=== PATIENT | female | born 1965 | race Caucasian/White ===

== ENCOUNTER 2018-03-27 07:43 | Day surgery (SDC) | END 2018-03-27 13:10 | disposition home or self-care (01) ==

== ENCOUNTER 2019-03-18 08:55 | Day surgery (SDC) | payer BC ==
[~2019-03-18] VITALS: Ht 167.6 cm; Wt 74.0 kg
[2019-03-18] VITALS (13 sets, daily range): BP systolic 103–119; BP diastolic 52–67; PULSE 80–94; RESP 14–21; Ht 167.6 cm; Wt 74.0 kg
[~2019-03-18 08:55] MED LIST: CEFAZOLIN 2 GM/50 ML (PMX) 50 ML IVPB SCH
[2019-03-18] MEDS ORDERED: LACTATED RINGER'S 1,000 ML IV SCH (10:00)
--- NOTE | 2019-03-18 10:52 | HPN ---
Date/Time of Note Date/Time of Note DATE: 03/18/19 TIME: 10:52 Interval H&P Admission Note Pt. seen H&P reviewed: No system changes MUKUL TURCIOS DPM Mar 18, 2019 10:52
--- NOTE | 2019-03-18 10:56 | PREAC ---
Date/Time of Note Date/Time of Note DATE: 03/18/19 TIME: 10:56 Anesthesia Eval and Record Evaluation Time Pre-Procedure Interview DATE: 03/18/19 TIME: 10:56 Age 53 Sex female NPO: 8 hrs Preoperative diagnosis Right foot bunion Planned procedure Bunionectomy Past Medical History Past Medical History: None Surgery & Anesthesia Issues No known issue Meds Anticoagulation: No Beta Larissa within 24 hr: No Reason Beta Larissa not given: Pt. not on B-Larissa No Active Prescriptions or Reported Meds Current Medications Cefazolin Sodium/ Dextrose 50 ml @ 100 mls/hr PREOP IVPB ; Start 03/18/19 at 06:30; Stop 03/18/19 at 20:00 Lactated Ringer's 1,000 ml @ 25 mls/hr Q24H IV Last administered on 03/18/19at 10:10; Admin Dose 25 MLS/HR; Start 03/18/19 at 10:00 Meds reviewed: Yes Allergies Coded Allergies: No Known Allergy (Unverified , 03/18/19) Allergies Reviewed: Yes Labs/Studies Labs Reviewed: Reviewed by anesthesiologist test: Negative Pre-procedure Exam Last vitals Vital Signs Date Temp Pulse Resp B/P (MAP) Pulse Ox O2 O2 Flow FiO2 Time Delivery Rate 03/18/19 97.5 88 16 119/67 100 Room Air 10:25 (84) Airway: Adequate mouth opening Mallampati: Mallampati I Teeth: Normal Lung: Normal Heart: Normal ASA Physical Status ASA physical status: 1 Emergency: None Planned Anesthetic General/MAC: LMA Planned Pain Management Parenteral pain med Pre-operative Attestations Prior to commencing anesthesia and surgery, the patient was re-evaluated, there was verification of: *The patient's identity *The results of appropriate recent lab work and preoperative vital signs *The above evaluation not changing prior to induction *Anesthetic plan, risk benefits, alternative and complications discussed with patient/family; questions answered; patient/family understands, accepts and wishes to proceed. XENIA CALDERON MD Mar 18, 2019 10:56
[2019-03-18] MEDS ORDERED: PROPOFOL 20 ML ONE (11:09)
[2019-03-18] MEDS ORDERED: CEFAZOLIN 1 GM INJ ONE (11:09)
[2019-03-18] MEDS ORDERED: LIDOCAINE 2% (SDV) 5 ML INJ ONE (11:09)
[2019-03-18] MEDS ORDERED: MIDAZOLAM 1 MG/ML 2 ML INJ ONE (11:10)
[2019-03-18] MEDS ORDERED: METOCLOPRAMIDE 10 MG INJ ONE (11:10)
[2019-03-18] MEDS ORDERED: ONDANSETRON 4 MG INJ ONE (11:10)
[2019-03-18] MEDS ORDERED: BUPIVACAINE 0.5% (SDV) 30 ML INJ ONE (11:15)
[2019-03-18] MEDS ORDERED: POLYMYXIN/BACITRACIN 1L IRRIG ONE (11:15)
--- NOTE | 2019-03-18 12:35 | OPR ---
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 Patient reports she has exhausted nonsurgical management such as activity modification, shoe gear modification, NSAIDs and pain medication. The recommended procedure is surgical correction of right foot bunion deformity. Risks and complications of this type of surgery was discussed with patient in great detail. Risks and complications discussed include, but are not limited to, postoperative infection, postoperative pain, chronic pain and disability, hardware failure, malunion, nonunion, delayed union, failure of surgery to correct the problem, need for ad ditional surgical procedures, toenail changes, onychomycosis, deep venous thrombosis, gait disturbance, problems with shoegear, limitation of activities, limb loss and loss of life. Patient understands the discussion and agrees to the procedure. An informed consent was obtained, signed and placed in the chart. No guarantee or warrantee was given or implied as to the outcome of the procedure either in verbal or written form. Procedure Description The patient was seen in the preoperative unit. The proposed surgery was discussed with patient in great detail. Risks and complications of this type of surgery was discussed with patient in great detail. Opportunity was given to patient to ask questions and all questions were answered. The patient acknowledges understanding of the discussion. An informed consent was then obtained, signed and placed in the chart. Procedure: Surgical correction of right foot bunion deformity Patient was taken to the operating room and was placed on the operating table in the supine position. All bony prominences were padded properly. A timeout was called by the circulating nurse. Everyone in the operating room was agreeable to the timeout. The patient was then placed under general anesthesia by the anesthesiologist. [A pneumatic ankle tourniquet was applied to the right ankle]. The right lower extremity was scrubbed,l prepped, and draped in the usual aseptic manner. An Esmarch bandage was utilized to exsanguinate the right lower extremity and the tourniquet was inflated to 250 mmHg pressure. Attention was directed to the right foot. A 6 cm linear incision was made medial and parallel to the extensor hallucis longus tendon using a sharp #10 blade. Bleeders were cauterized as necessary. Sharp and blunt dissection was made of the joint capsule with care being taken to identify and protect vital neurovascular structures. The first metatarsal phalangeal joint capsule was identified and a linear capsulotomy was done using a #15 blade. The joint capsule was then sharply dissected at the periosteal level exposing the first metatarsal phalangeal joint. Large bony prominence was found of the dorsal and medial aspect of the first metatarsal head. A McGlamry elevator was inserted into the joints and adhesions were released. Next, a power saw was used to cut the medial bony prominence. A Chevron type osteotomy was made at the head of t he first metatarsal bone. The capital fragment was translated laterally to the desired position and a 0.045 K wire was inserted for temporary fixation. I inserted a guidewire for a 3.0 cannulated and headless screw for fixation using lag technique. The remaining medial shelf of bone was cut using a power saw. All rough edges were smoothed using a power rasp. The deformity was corrected at this time. Excellent range of motion of the first metatarsal phalangeal joint was noted. Copious amounts of sterile normal saline was used to irrigate the wound. Next, the joint capsule was closed using 3-0 Vicryl suture; the subcutaneous layer was closed using 4-0 Vicryl and the skin was closed using 5-0 Monocryl in subcuticular stitch pattern. Steri-Strips were applied. Postoperative injection was given, 15 cc of 0.5% Marcaine plain. Sterile dressing was applied to the right foot. The Esmarch was deflated at this time and prompt hyperemic response was noted to the digits of the right foot. The patient tolerated the procedure and anesthesia well. She was transferred to the recovery room with vital signs stable and vascular status intact to the right foot. The patient will be discharged home after postoperative monitoring. Postoperative orders were written. Prescription for pain medication was electronically submitted to patient's pharmacy. Patient is to follow-up in the office in 1 week. Weightbearing status is partial weightbearing right foot with crutches and a postop shoe. MUKUL TURCIOS DPM Mar 18, 2019 12:35
[2019-03-18] MEDS ORDERED: ONDANSETRON 4 MG INJ IV PRN (13:00)
[2019-03-18] MEDS ORDERED: FENTAnyl 50 MCG/ML VIAL IV PRN ×3 (13:00)
[2019-03-18] MEDS ORDERED: DIPHENHYDRAMINE 50 MG INJ IV PRN (13:00)
[2019-03-18] MEDS ORDERED: MEPERIDINE 25 MG INJ IV PRN (13:00)
[2019-03-18] MEDS ORDERED: METOCLOPRAMIDE 10 MG INJ IV PRN (13:00)
[2019-03-18] MEDS ORDERED: OXYCODONE/ACETAMINOPHEN (5/325) TAB PO PRN ×2 (13:00)
[2019-03-18] MEDS ORDERED: MIDAZOLAM 1 MG/ML 2 ML INJ IV PRN (13:00)
--- NOTE | 2019-03-18 14:01 | PAC ---
Date/Time of Note Date/Time of Note DATE: 03/18/19 TIME: 14:00 Post-Anesthesia Notes Post-Anesthesia Note Last documented vital signs Vital Signs Date Temp Pulse Resp B/P (MAP) Pulse Ox O2 O2 Flow FiO2 Time Delivery Rate 03/18/19 97.2 91 16 111/64 96 Room Air 13:43 (80) 03/18/19 2.0 12:53 Activity: WNL Respiratory function: WNL Cardiovascular function: WNL Mental status: Baseline Pain reasonably controlled: Yes Hydration appropriate: Yes Nausea/Vomiting absent: Yes XENIA CALDERON MD Mar 18, 2019 14:01
== END 2019-03-18 15:07 | disposition home or self-care (01) ==
LOC: SDS 08:55
PROVIDERS: ATTEND Podiatrist Foot & Ankle Surgery
DX: M21.611 Bunion of right foot (principal); M20.61 Acquired deformities of toe(s), unspecified, right foot
CPT/HCPCS: 28296; 73630; 88304; 88311; C1713; J0690; J2250; J2405; J2765; J3010; L3260; Z7512; Z7610